=== PATIENT | male | born 1980 | race Caucasian/White ===

== ENCOUNTER 2017-06-16 11:14 | Emergency (ER) | payer OTHER ==
[2017-06-16 13:41] VITALS: BP 128/77
[2017-06-16] MEDS ORDERED: cefTRIAXone VIAL(*) 1,000 MG VIAL IM ONE (14:05)
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
[2017-06-16] MEDS ORDERED: Lidocaine 1% MPF* 2 ML VIAL ONE (14:17)
== END 2017-06-16 14:54 | disposition home or self-care (01) ==
LOC: UCCORT 11:14
DX: L02.414 Cutaneous abscess of left upper limb (principal); L03.114 Cellulitis of left upper limb; I10 Essential (primary) hypertension; Z88.5 Allergy status to narcotic agent
CPT/HCPCS: 96372; 99212; G0463; J0696

== ENCOUNTER 2017-06-29 18:48 | Emergency (ER) | payer OTHER | END 2017-06-29 20:56 | disposition left against medical advice (07) | LOC: UCCORT 18:48 | DX: R21 Rash and other nonspecific skin eruption (principal); Z53.21 Procedure and treatment not carried out due to patient leaving prior to being seen by health care provider ==